=== PATIENT | female | born 1980 | race Caucasian/White ===

== ENCOUNTER 2016-11-24 11:32 | Emergency (ER) | payer MEDICAID ==
[2016-11-24 11:41] VITALS: TEMP 98.6
[2016-11-24] MEDS ORDERED: IPRATROPIUM/ALBUTEROL 3 ML DEYVIAL IH ONE (12:09)
[2016-11-24 12:20] VITALS: RESP 16
--- NOTE | 2016-11-24 12:52 | EDPHY ---
H & P Stated Complaint: cough/congestion seen saturday at clinic in [place] /not better Time Seen by Provider: 11/24/16 12:01 HPI/ROS: Chief complaint: Cold symptoms History of present illness: This is a 36-year-old female who presents to the emergency department for cold symptoms. Patient reports he has been sick for the last 2 weeks. She reports tactile fevers and chills, runny nose, sore throat, chest congestion and a persistent cough with yellow sputum. She reports multiple sick contacts. She did go to [facility] and was treated with a decongestant but symptoms persist. She denies other associated signs or symptoms including no headache, shortness of breath, no rashes. Review of systems: A 10 point review of systems was obtained and other than described above was negative - Personal History LMP (Females 10-55): 22-28 Days Ago Current Tetanus/Diphtheria Vaccine: Unsure - Medical/Surgical History Hx Asthma: No Hx Chronic Respiratory Disease: No Hx Diabetes: No Hx Cardiac Disease: No Hx Renal Disease: No Hx Cirrhosis: No Hx Alcoholism: No Hx HIV/AIDS: No Hx Splenectomy or Spleen Trauma: No Other PMH: denies - Social History Smoking Status: Current every day smoker - Physical Exam Exam: General Appearance: Alert, nontoxic. Eyes: Pupils equal and round no pallor or injection. ENT, Mouth: Tympanic membranes, external auditory canals, external easr and surrounding soft tissue including over the mastoids are unremarkable. Nasopharynx is not injected. There is no rhinorrhea. Oropharynx is mildly injected. There is no edema. There is no exudate. There is no asymmetry. The uvula is midline. No elevation of the tongue. There is no hoarseness, no drooling, no trismus, no stridor. Respiratory: No use of accessary muscles or evidence of respiratory distress. Lung sounds are mildly diminished with occasional inspiratory and expiratory wheezing. Cardiovascular: Regular rate and rhythm. Gastrointestinal: Abdomen is soft and non tender, no masses, bowel sounds normal. Neurological: Alert and oriented x4. Strength and sensation intact and symmetrical. No meningismus. Skin: Warm and dry, no rashes. Musculoskeletal: Neck is supple non tender. Extremities are symmetrical, full range of motion. Psychiatric: Patient is oriented X 3, there is no agitation. Constitutional: Initial Vital Signs Temperature (C) 37 C 11/24/16 11:38 Heart Rate 95 11/24/16 11:38 Respiratory Rate 18 11/24/16 11:38 Blood Pressure 140/97 H 11/24/16 11:38 O2 Sat (%) 95 11/24/16 11:38 O2 Delivery Mode Room Air Allergies/Adverse Reactions: Penicillins Allergy (Verified 11/24/16 11:36) Home Medications: Medication Instructions Recorded Azithromycin 250 mg PO DAILY 4 Days 11/24/16 Codeine Phosphate/Guaifenesin 10 ml PO Q6 #120 ml 11/24/16 [Codeine-Guaifen 10-100 mg/5 ml] Nexafed Sinus Press-Pain Tab 11/24/16 Tussionex Suspension 11/24/16 Medical Decision Making - Diagnostics Imaging Results: Imaging Impressions Chest X-Ray 11/24/16 12:09 Impression: 1. Mild bronchitis/airways disease. 2. No definite focal pneumonia. ED Course/Re-evaluation: Patient seen under the supervision of my secondary supervising physician Dr. Artur Clay. Patient presents to the emergency department for persistent cold symptoms. She is nontoxic. Strep swab is negative. Chest x-ray consistent with bronchitis. She is symptomatically treated with a DuoNeb. Given length of time she has been sickI do believe she warrants antibiotic treatment and she is started on azithromycin. She will be discharged home on a full course. She will be symptomatically treated with an inhaler. She is asked to follow up with primary care doctor for recheck. Return precautions are given. Patient voiced understanding and agreement with plan. Differential Diagnosis: Included but not limited to pneumonia, bronchitis, strep pharyngitis - Data Points Laboratory Results: 11/24/16 11/24/16 Unknown 12:10 Group A Strep Screen NEGATIVE (NEGATIVE) Group A Strep DNA Pending Medications Given: Discontinued Medications Albuterol Sulfate (Proventil Inh Prepack) 1 mdi TAKEHOME EDNOW ONE Stop: 11/24/16 13:06 Last Admin: 11/24/16 13:16 Dose: 1 mdi Albuterol/Ipratropium (Duoneb) 3 ml IH EDNOW ONE Stop: 11/24/16 12:10 Last Admin: 11/24/16 12:16 Dose: 3 ml Azithromycin (Zithromax) 500 mg PO EDNOW ONE PRN Reason: Protocol Stop: 11/24/16 13:01 Last Admin: 11/24/16 13:16 Dose: 500 mg Departure - Departure Disposition: Home, Routine, Self-Care Clinical Impression: Acute bronchitis Qualifiers: Bronchitis organism: unspecified organism Qualified Code(s): J20.9 - Acute bronchitis, unspecified Condition: Good Instructions: Acute Bronchitis (ED) Additional Instructions: Follow-up with the primary care doctor for recheck Take all antibiotics as prescribed until finished even feeling better Use inhaler, 1-2 puffs every 4-6 hours as needed If symptoms worsen or new symptoms develop return to the emergency room for recheck Referrals: [facility],. [Clinic] - As per Instructions Prescriptions: Azithromycin 250 mg PO DAILY 4 Days Codeine Phosphate/Guaifenesin [Codeine-Guaifen 10-100 mg/5 ml] 10 ml PO Q6 #120 ml
[2016-11-24] MEDS ORDERED: AZITHROMYCIN 250 MG TAB PO ONE (13:00)
[2016-11-24] MEDS ORDERED: ALBUTEROL INH PREPACK MDI TAKEHOME ONE (13:05)
[2016-11-24 13:24] VITALS: BP 132/86; PULSE 100; O2SAT 93
== END 2016-11-24 13:24 | disposition home or self-care (01) ==
DX: J20.9 Acute bronchitis, unspecified (principal); F17.200 Nicotine dependence, unspecified, uncomplicated